=== PATIENT | female | born 1950 | race Caucasian/White ===

== ENCOUNTER → 2020-04-23 | Outpatient (CLI) | payer MEDICARE, OTHER ==
--- NOTE | 2020-04-23 14:37 | RADIOLOGY REPORT (SQ) ---
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 TECHNIQUE: Blood glucose level was verified. Above dose of FDG was injected intravenously. 2-D seg mented attenuation correction images were obtained from the base of the skull to the midthighs. Nonc ontrast CT images were obtained for attenuation correction and fusion with emission images. CT image s were performed without oral or intravenous contrast and are not sensitive for parenchymal lesions. A series of overlapping emission PET images were obtained. Images reviewed and manipulated at [facility] work station by the radiologist. Images stored on PACS. LIMITATIONS: None. FINDINGS: HEAD AND NECK: There is some increased metabolic activity in the parapharyngeal space asym metric on the right. No definite CT abnormality SUV is 5.3. This could be physiologic. Direct visu alization is recommended. CHEST: Widespread abnormal uptake in the chest corresponding to the outside CT. There is a small pos terior right-sided mediastinal lymph node with an SUV of 3.3. This is best demonstrated on series CT 3 image 60 SUV in the right suprahilar mass is 7.0. Sub- carinal mass demonstrates an SUV of greate r than 7 as well. There are abnormal left hilar nodes with SUV ranging between 3.2 and 3.4. A small parenchymal nodule in the posterior right lung demonstrates an SUV of 2.7 most likely representing m etastatic disease as well. ABDOMEN AND PELVIS: 2 areas of focal uptake in the right lobe of liver consistent with metastatic dis ease. SUV is as high as 5.6. . PROXIMAL LOWER EXTREMITIES: No areas of abnormal metabolic activity in the soft tissues of the lower extremities. BONES: No abnormal metabolic activity in the visualized skeleton. ADDITIONAL CT FINDINGS: No additional significant findings on the noncontrast CT images. OTHER: Numerous subcutaneous lesions involving the abdomen and pelvis as well as the chest wall. The se findings are consistent with subcutaneous metastatic disease. SUVs range from 1.9 to 7.5. There are intramuscular lesions in the proximal medial right thigh and posterior left thigh. SUVs are as h igh as 5.6. There is an intramuscular lesion in the left upper extremity as well. SUV is measured 7 .6 IMPRESSION: Widespread metastatic disease as discussed. TECHNICAL DOCUMENTATION: JOB ID: [id number] 2010 [employer]- All Rights Reserved Reading location - IP/workstation name: [email or web address]
== END ==
LOC: RAD 11:15
PROVIDERS: ATTEND Internal Medicine
DX: C34.31 Malignant neoplasm of lower lobe, right bronchus or lung (principal)
CPT/HCPCS: 78815; A9552